=== PATIENT | male | born 1955 | race Hispanic/Latino ===

== ENCOUNTER 2016-05-01 08:11 | Emergency (ER) | payer OTHER ==
--- NOTE | 2016-05-01 08:53 | Emergency Department Report ---
ED Lower Extremity HPI - General Chief Complaint: Extremity Injury, Lower Stated Complaint: LEFT FOOT ANKLE PAIN Time Seen by Provider: 05/01/16 08:47 Source: patient Mode of arrival: Ambulatory Limitations: No Limitations - History of Present Illness Initial Comments: Patient here complaining of left ankle and foot pain for 2 days. He said he stepped off a ladder and got a foot and ankle caught into some loose bricks. He reports pain 9 out of 10 to his foot and ankle. Denies any numbness or tingling to ankle/foot. Patient blood pressure elevated he said he does not have a history of high blood pressure MD Complaint: ankle injury, foot injury Onset/Timin -: days(s) Injury: Ankle: Left (pain), Foot: Left (pain) Type of Injury: other (patient reports that he stepped off a ladder and stepped between breakfast) Place: street/outdoors Severity scale (0 -10): 9 Worsens With: weight bearing Context: other (stepped between bricks) Associated Symptoms: swelling, ambulatory. denies: snap/pop sensation, numbness , tingling Treatments Prior to Arrival: cold therapy - Related Data Previous Rx's Medication Instructions Recorded Last Taken Type HYDROcodone/APAP 5-325 [[place] 1 each PO Q6HR PRN #15 tablet 10/07/14 Unknown Rx 5-325 mg TAB] Ibuprofen [Motrin 800 MG tab] 800 mg PO Q8HR PRN #30 tablet 10/07/14 Unknown Rx Sulfamethoxazole/Trimethoprim 1 each PO BID #20 tablet 10/07/14 Unknown Rx [Bactrim DS TAB] Ibuprofen [Motrin 600 MG tab] 600 mg PO Q8H PRN #30 tablet 10/13/14 Unknown Rx Sulfamethoxazole/Trimethoprim 1 each PO BID #20 tablet 10/13/14 Unknown Rx [Bactrim DS TAB] traMADol [Ultram] 50 mg PO Q6HR PRN #20 tablet 05/01/16 Unknown Rx Allergies Allergy/AdvReac Type Severity Reaction Status Date / Time No Known Allergies Allergy Verified 10/09/14 08:35 ED Review of Systems ROS: Stated complaint: LEFT FOOT ANKLE PAIN Other details as noted in HPI Comment: All other systems reviewed and negative Constitutional: denies: chills, fever Respiratory: no symptoms reported Cardiovascular: denies: chest pain, palpitations, edema, syncope Gastrointestinal: denies: nausea, vomiting Musculoskeletal: joint swelling, arthralgia. denies: back pain Skin: denies: rash Neurological: denies: headache, weakness, numbness, paresthesias, abnormal gait , vertigo ED Past Medical Hx - Past Medical History Previous Medical History?: Yes Hx Hypertension: Yes (not previously diagnosed, no meds) - Surgical History Past Surgical History?: No - Family History Family history: no significant - Social History Smoking Status: Current Every Day Smoker Substance Use Type: Alcohol - Medications Home Medications: Home Medications Medication Instructions Recorded Confirmed Last Taken Type HYDROcodone/APAP 5-325 [[place] 1 each PO Q6HR PRN #15 tablet 10/07/14 10/09/14 Unknown Rx 5-325 mg TAB] Ibuprofen [Motrin 800 MG tab] 800 mg PO Q8HR PRN #30 tablet 10/07/14 10/09/14 Unknown Rx Sulfamethoxazole/Trimethoprim 1 each PO BID #20 tablet 10/07/14 10/09/14 Unknown Rx [Bactrim DS TAB] Ibuprofen [Motrin 600 MG tab] 600 mg PO Q8H PRN #30 tablet 10/13/14 Unknown Rx Sulfamethoxazole/Trimethoprim 1 each PO BID #20 tablet 10/13/14 Unknown Rx [Bactrim DS TAB] traMADol [Ultram] 50 mg PO Q6HR PRN #20 tablet 05/01/16 Unknown Rx ED Physical Exam - General Limitations: No Limitations General appearance: alert, in no apparent distress - Head Head exam: Present: atraumatic, normocephalic, normal inspection - Eye Eye exam: Present: normal appearance, PERRL, EOMI Pupils: Present: normal accommodation - Respiratory Respiratory exam: Present: normal lung sounds bilaterally. Absent: respiratory distress, chest wall tenderness - Cardiovascular Cardiovascular Exam: Present: regular rate, normal rhythm, normal heart sounds - GI/Abdominal GI/Abdominal exam: Present: soft, normal bowel sounds. Absent: distended, tenderness, guarding, rebound, rigid - Extremities Exam Extremities exam: Present: normal inspection, full ROM, tenderness, normal capillary refill. Absent: pedal edema, joint swelling, calf tenderness - Expanded Lower Extremity Exam Left Hip exam: Present: normal inspection, full ROM, pelvic stability. Absent: tenderness, swelling, abrasion, laceration, ecchymosis, deformity, crepidus, dislocation, erythema, external rotation, internal rotation, shortening Upper Leg exam: Present: normal inspection, full ROM. Absent: tenderness, swelling, abrasion, laceration, ecchymosis, deformity, crepidus, dislocation Knee exam: Present: normal inspection, full ROM, full knee extension. Absent: tenderness, swelling, abrasion, laceration, ecchymosis, deformity, crepidus, dislocation, erythema, effusion, pain w/ pronation/supination, posterior draw sign, pain/laxity with valgus, pain/laxity with varus Lower Leg exam: Present: normal inspection, full ROM. Absent: tenderness, swelling, abrasion, laceration, ecchymosis, deformity, crepidus, dislocation, erythema, palpable cord, Dahlia's sign Ankle exam: Present: normal inspection, full ROM, tenderness. Absent: swelling , abrasion, laceration, ecchymosis, deformity, crepidus, dislocation, erythema Foot/Toe exam: Present: normal inspection, full ROM, tenderness. Absent: swelling, abrasion, laceration, ecchymosis, deformity, crepidus, dislocation, erythema, amputation, puncture wound, foreign body, calcaneal tenderness, tenderness at base of 5th metatarsal, nail avulsion, subungual hematoma Neuro vascular tendon exam: Present: no vascular compromise. Absent: pulse deficit, abnormal cap refill, motor deficit, sensory deficit, tendon deficit, extremity cold to touch, pallor, abnormal 2-point discrimination, decreased fine /light touch, foot drop, peroneal nerve deficit, significant pain with passive ROM of distal joint Gait: Positive: observed and limited by pain - Back Exam Back exam: Present: normal inspection, full ROM. Absent: tenderness, CVA tenderness (R), CVA tenderness (L), muscle spasm, paraspinal tenderness, vertebral tenderness, rash noted - Neurological Exam Neurological exam: Present: alert, oriented X3, normal gait, reflexes normal. Absent: motor sensory deficit - Psychiatric Psychiatric exam: Present: normal affect, normal mood - Skin Skin exam: Present: warm, dry, intact, normal color. Absent: rash ED Course Vital Signs 05/01/16 08:21 Temperature 98.2 F Pulse Rate 73 Respiratory 20 Rate Blood Pressure 175/110 O2 Sat by Pulse 98 Oximetry Vital Signs 05/01/16 05/01/16 08:21 10:12 Temperature 98.2 F Pulse Rate 73 91 H Respiratory 20 16 Rate Blood Pressure 175/110 Blood Pressure 177/100 [Left] O2 Sat by Pulse 98 99 Oximetry - Reevaluation(s) Reevaluation #1: 05/01/16 10:10 Patient did not want any medication for pain while in emergency room. - Orthopedic Splinting/Casting Injury #1 Side: left Lower Extremity Injury Location: ankle, foot Lower Extremity Immobilizer: stirrup splint ED Lower Extremity MDM - Radiology Data Radiology results: report reviewed X-ray report of left foot and ankle revealed no acute fracture or dislocation. - Medical Decision Making ED course: Patient here status post left foot and ankle injury. X-ray reports revealed no fracture or dislocation. This was communicated to patient. See procedure note for splinting in detail. Patient did not want any medication for pain in emergency room. Discussed with him that he needs to follow up with orthopedic if he continues to have ankle and foot pain. Patient was understanding and discharged home with prescription for Ultram. Critical care attestation.: If time is entered above; I have spent that time in minutes in the direct care of this critically ill patient, excluding procedure time. ED Disposition Clinical Impression: Arthralgia of multiple sites, Elevated blood pressure (not hypertension) Left ankle strain Qualifiers: Encounter type: initial encounter Qualified Code(s): S96.912A - Strain of unspecified muscle and tendon at ankle and foot level, left foot, initial encounter Strain of left foot Qualifiers: Encounter type: initial encounter Qualified Code(s): S96.912A - Strain of unspecified muscle and tendon at ankle and foot level, left foot, initial encounter Disposition: DISCHARGED TO HOME OR SELFCARE Is pt being admited?: No Does the pt Need Aspirin: No Condition: Stable Instructions: Arthralgia (ED), Ankle Exercises (GEN), Ankle Stirrup Splint (ED) , Hypertension (ED), Low Sodium Diet (ED), DASH Eating Plan (ED) Additional Instructions: Take medication as prescribed. Rest, ice, compress and elevate affected areas. Your blood pressure was elevated on 2 occasion while in the emergency room. He will need to keep a log of. Blood pressure and take to her primary care doctor for evaluation and possible treatment for high blood pressure Prescriptions: traMADol [Ultram] 50 mg PO Q6HR PRN #20 tablet PRN Reason: Pain Referrals: TOM MEIER MD [Staff Physician] - 3-5 Days
--- NOTE | 2016-05-01 09:36 | XRay Report ---
Left ankle 3 views. Findings: There are no acute fractures or dislocations. A small osseous density inferior to the medial malleolus may represent an old evulsion injury. Amorphous calcifications in the posterior soft tissues are nonspecific. Impression: No acute findings.
--- NOTE | 2016-05-01 09:37 | XRay Report ---
Left foot 3 views. Findings: There are no fractures or other acute findings. Osteoarthritis is seen at the first tarsometatarsal joint. An old chip fracture of the first distal phalanx at the base is noted. Soft tissue [employer] posterior to the ankle joint are nonspecific. Impression: No acute findings.
[2016-05-01 10:13] VITALS: BP 177/100
== END 2016-05-01 10:26 | disposition home or self-care (01) ==
LOC: ED 08:11
DX: S96.912A Strain of unspecified muscle and tendon at ankle and foot level, left foot, initial encounter (principal); R03.0 Elevated blood-pressure reading, without diagnosis of hypertension; F17.200 Nicotine dependence, unspecified, uncomplicated; W22.8XXA Striking against or struck by other objects, initial encounter; Y93.89 Activity, other specified; Y99.8 Other external cause status; Y92.488 Other paved roadways as the place of occurrence of the external cause
CPT/HCPCS: 99283

== ENCOUNTER 2017-08-31 23:45 | Emergency (ER) | payer OTHER ==
[2017-09-01] MEDS ORDERED: TYLENOL PO ONE (00:39)
--- NOTE | 2017-09-01 03:31 | XRay Report ---
FINAL REPORT EXAM: XR ANKLE 3+V LT HISTORY: L ankle pain s/p twisting ankle TECHNIQUE: 3 views of left ankle. PRIORS: None. FINDINGS: Small and well-corticated, ossific densities adjacent to the medial and posterior malleoli may represent old avulsion injuries versus unfused or accessory ossicles. No obviously acute fracture or dislocation. Ankle mortise maintained. Mild degenerative changes in the hind and midfoot. Mild plantar calcaneal spurring. Anterolateral soft tissue edema. IMPRESSION: 1. No acute osseous abnormality. 2. Degenerative changes and soft tissue edema.
--- NOTE | 2017-09-01 06:29 | Emergency Department Report ---
ED Lower Extremity HPI - General Chief Complaint: Extremity Injury, Lower Stated Complaint: LEFT ANKLE SWOLE Time Seen by Provider: 09/01/17 06:22 Source: patient Mode of arrival: Ambulatory Limitations: No Limitations - History of Present Illness Initial Comments: Excuse for Abe Levine male comes in reporting left ankle and foot pain. Patient reports that he fell to his knees after twisting his ankle approximately 7-10 days ago. He complains of intermittent pain and swelling since then. Patient reports her hurts more to sit still than to walk. Patient has a past medical history of hypertension. MD Complaint: ankle injury, fall -: days(s) (7-10) Injury: Ankle: Left Type of Injury: unknown Place: home Severity scale (0 -10): 7 Improves With: other (movement) Worsens With: other (past) Context: fall Treatments Prior to Arrival: bandage - Related Data Previous Rx's Medication Instructions Recorded Last Taken Type HYDROcodone/APAP 5-325 [[place] 1 each PO Q6HR PRN #15 tablet 10/07/14 Unknown Rx 5-325 mg TAB] Ibuprofen [Motrin 800 MG tab] 800 mg PO Q8HR PRN #30 tablet 10/07/14 Unknown Rx Sulfamethoxazole/Trimethoprim 1 each PO BID #20 tablet 10/07/14 Unknown Rx [Bactrim DS TAB] Ibuprofen [Motrin 600 MG tab] 600 mg PO Q8H PRN #30 tablet 10/13/14 Unknown Rx Sulfamethoxazole/Trimethoprim 1 each PO BID #20 tablet 10/13/14 Unknown Rx [Bactrim DS TAB] traMADol [Ultram] 50 mg PO Q6HR PRN #20 tablet 05/01/16 Unknown Rx Diclofenac EC [Voltaren] 25 mg PO Q8HR #15 tablet 09/01/17 Unknown Rx Allergies Allergy/AdvReac Type Severity Reaction Status Date / Time No Known Allergies Allergy Verified 10/09/14 08:35 ED Review of Systems ROS: Stated complaint: LEFT ANKLE SWOLE Other details as noted in HPI Musculoskeletal: arthralgia (left ankle). denies: joint swelling ED Past Medical Hx - Past Medical History Previous Medical History?: Yes Hx Hypertension: Yes (not previously diagnosed, no meds) - Surgical History Past Surgical History?: No - Social History Smoking Status: Current Every Day Smoker Substance Use Type: Alcohol - Medications Home Medications: Home Medications Medication Instructions Recorded Confirmed Last Taken Type HYDROcodone/APAP 5-325 [[place] 1 each PO Q6HR PRN #15 tablet 10/07/14 10/09/14 Unknown Rx 5-325 mg TAB] Ibuprofen [Motrin 800 MG tab] 800 mg PO Q8HR PRN #30 tablet 10/07/14 10/09/14 Unknown Rx Sulfamethoxazole/Trimethoprim 1 each PO BID #20 tablet 10/07/14 10/09/14 Unknown Rx [Bactrim DS TAB] Ibuprofen [Motrin 600 MG tab] 600 mg PO Q8H PRN #30 tablet 10/13/14 Unknown Rx Sulfamethoxazole/Trimethoprim 1 each PO BID #20 tablet 10/13/14 Unknown Rx [Bactrim DS TAB] traMADol [Ultram] 50 mg PO Q6HR PRN #20 tablet 05/01/16 Unknown Rx Diclofenac EC [Voltaren] 25 mg PO Q8HR #15 tablet 09/01/17 Unknown Rx ED Physical Exam - General Limitations: No Limitations General appearance: alert, in no apparent distress - Head Head exam: Present: atraumatic, normocephalic - Expanded Lower Extremity Exam Left Knee exam: Present: normal inspection, full ROM. Absent: tenderness Foot/Toe exam: Present: full ROM, tenderness (pain to palpate to the arch, lateral malleolus). Absent: swelling, abrasion Neuro vascular tendon exam: Present: no vascular compromise. Absent: pulse deficit - Neurological Exam Neurological exam: Present: alert, oriented X3 ED Course Vital Signs 09/01/17 09/01/17 00:22 00:45 Temperature 98.1 F Pulse Rate 87 Respiratory 18 18 Rate Blood Pressure 161/95 O2 Sat by Pulse 95 Oximetry ED Lower Extremity MDM - Radiology Data Radiology results: report reviewed FINAL REPORT EXAM: XR ANKLE 3+V LT HISTORY: L ankle pain s/p twisting ankle TECHNIQUE: 3 views of left ankle. PRIORS: None. FINDINGS: Small and well-corticated, ossific densities adjacent to the medial and posterior malleoli may represent old avulsion injuries versus unfused or accessory ossicles. No obviously acute fracture or dislocation. Ankle mortise maintained. Mild degenerative changes in the hind and midfoot. Mild plantar calcaneal spurring. Anterolateral soft tissue edema. IMPRESSION: 1. No acute osseous abnormality. 2. Degenerative changes and soft tissue edema. Transcribed By: [facility] Dictated By: DION HERMAN MD Electronically Authenticated By: DION HERMAN MD Signed Date/Time: 09/01/17326 DD/ 6 TD/TT: 09/01/17326 - Medical Decision Making Patient has been evaluated by this provider fast track. X-r of left ankle shows no acute osseous abnormality.Degenerative changes and soft tissue edema. Beto bandage applied by this provider. Discussed the patient to take pain medication as prescribed. Follow-up with orthopedist or primary care if symptoms persist or gets worse Critical care attestation.: If time is entered above; I have spent that time in minutes in the direct care of this critically ill patient, excluding procedure time. ED Disposition Clinical Impression: Sprained ankle Qualifiers: Encounter type: initial encounter Involved ligament of ankle: unspecified ligament Laterality: left Qualified Code(s): S93.402A - Sprain of unspecified ligament of left ankle, initial encounter Degenerative joint disease of ankle Qualifiers: Osteoarthritis type: primary Laterality: left Qualified Code(s): M19.072 - Primary osteoarthritis, left ankle and foot Disposition: DC-01 TO HOME OR SELFCARE Is pt being admited?: No Does the pt Need Aspirin: No Condition: Stable Additional Instructions: Please is take pain medication as prescribed. Follow-up with orthopedist with her primary care provider if symptoms persist or gets worse. Prescriptions: Diclofenac EC [Voltaren] 25 mg PO Q8HR #15 tablet Referrals: SAUL STROUD MD [Primary Care Provider] - 3-5 Days COREY GA MD [Staff Physician] - 3-5 Days
[2017-09-01 06:43] VITALS: BP 154/90
== END 2017-09-01 06:49 | disposition home or self-care (01) ==
LOC: ED 23:45
DX: S93.402A Sprain of unspecified ligament of left ankle, initial encounter (principal); M19.072 Primary osteoarthritis, left ankle and foot; I10 Essential (primary) hypertension; F17.200 Nicotine dependence, unspecified, uncomplicated; W18.30XA Fall on same level, unspecified, initial encounter; Y93.89 Activity, other specified; Y92.89 Other specified places as the place of occurrence of the external cause; Y99.8 Other external cause status
CPT/HCPCS: 99284